=== PATIENT | male | born 1965 | race Two or more races ===

== ENCOUNTER 2023-09-02 07:50 | Inpatient (IN) | payer MEDICAID, OTHER ==
[2023-09-02] VITALS (7 sets, daily range): BP systolic 105–116; BP diastolic 60–65; PULSE 54–64; RESP 16–20; TEMP 97.3–97.9; O2SAT 93–99
[~2023-09-02] VITALS: Ht 172.7 cm; Wt 123.0 kg
[2023-09-02 08:29] LABS: Basophils # (auto) 0.1 10 ^3/uL (0-0.2); Basophils % (auto) 1.2 % (0.0-2.0); Eosinophils # (auto) 0.2 10 ^3/uL (0-0.8); Eosinophils % (auto) 2.6 % (0.0-7.0); Hematocrit 43.1 % (41.0-53.0); Hemoglobin 14.5 g/dL (13.5-17.5); Lymphocytes # (auto) 2.4 10 ^3/uL (0.4-5.4); Mean Corpuscular Hemoglobin 31.3 pg (28.0-32.0); Mean Corpuscular Hgb Conc. 33.7 g/dL (32.0-36.0); Monocytes # (auto) 0.5 10 ^3/uL (0-1.3); Monocytes % (auto) 7.6 % (0.0-12.0); Neutrophils # (auto) 2.9 10 ^3/uL (1.6-8.6); Neutrophils % (auto) 48.6 % (37.0-80.0); Red Blood Cells 4.64 10^6/uL (4.5-5.90); Red Cell Distribution Width 13.9 % (11.8-14.3)
[2023-09-02] MEDS: ONDANSETRON HCL 4 MG/2 ML VIAL IV ONE (08:31)
[2023-09-02] MEDS: ASPirin 81 mg TAB PO ONE (08:31)
[2023-09-02] MEDS: MORPHINE SULFATE 4 MG/ML SYR/VIAL IV ONE (08:32)
[2023-09-02 08:37] LABS: Chloride 110 mmol/L (98-107); Potassium 3.1 mmol/L (3.5-5.1); Sodium 139 mmol/L (136-145)
[2023-09-02 08:38] LABS: Anion Gap 6 (5-15); Calcium 7.8 mg/dL (8.5-10.1); Carbon Dioxide 23 mmol/L (20-30)
[2023-09-02 08:43] LABS: BUN/Creatinine Ratio 13.3 (10.0-20.0); Blood Urea Nitrogen 8 mg/dL (9-23); Glucose 143 mg/dL (74-106)
[2023-09-02] MEDS: cloNIDine HCL 0.1 MG TAB PO ONE (08:54)
[2023-09-02] MEDS ORDERED: POTASSIUM EFFERVESENT TAB 25 MEQ PO ONE (10:00)
[2023-09-02] MEDS ORDERED: MORPHINE SULFATE 4 MG/ML SYR/VIAL IV PRN (10:00)
[2023-09-02] MEDS ORDERED: NITROGLYCERIN 0.4 MG SL TAB SL PRN ×2 (10:00→11:00)
[2023-09-02] MEDS: ASPirin 81 mg TAB PO SCH (10:00)
[2023-09-02] MEDS ORDERED: ONDANSETRON HCL 4 MG/2 ML VIAL IV PRN (10:00)
[2023-09-02 10:35] LABS: INR 1.05 (0.9-1.15); Prothrombin Time 11.1 sec (9.3-11.8)
[2023-09-02] MEDS ORDERED: MORPHINE SULFATE INJ 2 MG/ml SYRG IV PRN (11:00)
[2023-09-02] MEDS: DOCUSATE SOD 100 MG CAP PO SCH (11:23)
[2023-09-02] MEDS: METOPROLOL TARTRATE 25 MG TAB PO SCH (11:24)
[2023-09-02] MEDS: POTASSIUM CHL 20 Meq TABLET PO ONE (12:54)
[2023-09-02] MEDS: POTASSIUM CHL 20MEQ/100ML 100 ML IV ONE (12:55)
[2023-09-02 12:58] LABS: Triglycerides 207 mg/dL (< 150)
[2023-09-02 12:59] LABS: LDL Cholesterol 64 mg/dL (< 100)
[2023-09-02 13:00] LABS: Cholesterol 115 mg/dL (< 200); HDL Cholesterol 25 mg/dL (40-59)
[2023-09-02] MEDS ORDERED: hydrALAZINE HCL 20 MG/ML VL IV PRN (14:00)
[2023-09-02] MEDS ORDERED: AMLO1TAB23 PO (15:38)
[2023-09-02 16:16] LABS: Urine Bacteria None Seen /hpf (None Seen)
[2023-09-02] MEDS: ACETAMINOPHEN 325 MG TAB PO PRN (16:25)
[2023-09-02 16:50] LABS: Urine Blood Negative /uL (Negative); Urine Clarity Clear (Clear); Urine Color Light-Yellow (Yellow); Urine Protein, UAD Negative (Negative); Urine Specific Gravity 1.015 (1.001-1.035); Urine Urobilinogen Normal (Negative); Urine WBC 1 /hpf (0 - 3)
[2023-09-02 17:04] LABS: Amphetamine Screen, Urine Neg (NEGATIVE)
[2023-09-02 17:05] LABS: Barbiturate Scree,Urine Neg (NEGATIVE); Benzodiazephine Screen, Urine Neg (NEGATIVE); Cannabinoid Screen, Urine Neg (NEGATIVE); Cocaine Screen, Urine Neg (NEGATIVE); Opiate Scree,Urine Neg (NEGATIVE); Phencyclidine Screen, Urine Neg (NEGATIVE)
[2023-09-02] MEDS ORDERED: LORazepam 2MG/ML-1ML VIAL IV PRN (20:30)
[2023-09-02] MEDS: ATORVASTATIN 20 MG TAB PO SCH (21:38)
[2023-09-03] VITALS (8 sets, daily range): BP systolic 114–150; BP diastolic 77–91; PULSE 49–80; RESP 17–20; TEMP 97.5–98.1; O2SAT 92–100
[2023-09-03 06:03] LABS: Basophils # (auto) 0.1 10 ^3/uL (0-0.2); Basophils % (auto) 0.8 % (0.0-2.0); Eosinophils # (auto) 0.1 10 ^3/uL (0-0.8); Eosinophils % (auto) 2.2 % (0.0-7.0); Hematocrit 45.9 % (41.0-53.0); Hemoglobin 15.3 g/dL (13.5-17.5); Lymphocytes # (auto) 2.6 10 ^3/uL (0.4-5.4); Lymphocytes % (auto) 39.9 % (10.0-50.0); Mean Corpuscular Hemoglobin 31.2 pg (28.0-32.0); Mean Corpuscular Hgb Conc. 33.3 g/dL (32.0-36.0); Mean Corpuscular Volume 93.6 fL (80.0-100.0); Monocytes # (auto) 0.5 10 ^3/uL (0-1.3); Monocytes % (auto) 7.8 % (0.0-12.0); Neutrophils # (auto) 3.3 10 ^3/uL (1.6-8.6); Neutrophils % (auto) 49.3 % (37.0-80.0); Nucleated Red Blood Cells % 0.1 %; Red Blood Cells 4.91 10^6/uL (4.5-5.90); Red Cell Distribution Width 14.1 % (11.8-14.3); White Blood Cell 6.6 10^3/uL (4.4-10.8)
[2023-09-03 06:17] LABS: Alanine Aminotransferase 31 U/L (7-40); Albumin 4.2 g/dL (3.2-4.8); Alkaline Phosphatase 61 U/L (46-116); Anion Gap 4 (5-15); Aspartate Aminotransferase 19 U/L (13-40); BUN/Creatinine Ratio 9.1 (10.0-20.0); Blood Urea Nitrogen 8 mg/dL (9-23); Calcium 9.4 mg/dL (8.5-10.1); Carbon Dioxide 29 mmol/L (20-30); Chloride 105 mmol/L (98-107); Cholesterol 142 mg/dL (< 200); Glucose 134 mg/dL (74-106); HDL Cholesterol 29 mg/dL (40-59); LDL Cholesterol 82 mg/dL (< 100); Potassium 4.1 mmol/L (3.5-5.1); Sodium 138 mmol/L (136-145); Triglycerides 237 mg/dL (< 150)
[2023-09-03 06:18] LABS: Bilirubin, Total 0.6 mg/dL (0.2-1.0); Total Protein 6.9 g/dL (5.7-8.2)
[2023-09-03] MEDS: NIFEdipine ER 30 MG TAB PO SCH (09:36)
[2023-09-03] MEDS: VALSARTAN 80 MG TAB PO SCH (09:36)
[2023-09-03] MEDS: ENOXAPARIN SOD 40 MG/0.4 ML SYRINGE SC SCH (09:37)
[2023-09-03] MEDS: cefTRIAXone 1GM/50ML D5W 50 ML IV ONE (14:33)
[2023-09-03] MEDS ORDERED: ERGO1CAP12 PO (16:40)
[2023-09-03] MEDS ORDERED: EMPA1TAB PO (16:40)
[2023-09-03] MEDS ORDERED: LISI40TA16 PO (16:40)
[2023-09-03] MEDS ORDERED: SEMA2INJ3 SC (16:40)
[2023-09-03] MEDS ORDERED: ATOR10TA PO (16:40)
[2023-09-04 01:48] VITALS: BP 142/77; PULSE 63; RESP 18; TEMP 97.6; O2SAT 95
[2023-09-04 05:00] VITALS: BP 131/80; PULSE 61; RESP 18; TEMP 97.6; O2SAT 93
[2023-09-04] MEDS ORDERED: ASPI-325 PO (06:15)
[2023-09-04] MEDS ORDERED: NIFE1TAB31 PO (06:15)
[2023-09-04] MEDS ORDERED: ATOR20TA50 PO (06:15)
[2023-09-04] MEDS ORDERED: VALS1TAB57 PO (06:15)
[2023-09-04] MEDS ORDERED: ACET-1882 PO (06:15)
[2023-09-04] MEDS ORDERED: CEPH250C PO (06:15)
[2023-09-04] MEDS ORDERED: AUG875T PO (06:31)
[2023-09-04 07:23] LABS: Chloride 105 mmol/L (98-107); Potassium 3.8 mmol/L (3.5-5.1); Sodium 138 mmol/L (136-145)
[2023-09-04 07:24] LABS: Anion Gap 6 (5-15); Calcium 9.5 mg/dL (8.5-10.1); Carbon Dioxide 27 mmol/L (20-30)
[2023-09-04 07:29] LABS: BUN/Creatinine Ratio 11.4 (10.0-20.0); Blood Urea Nitrogen 9 mg/dL (9-23); Glucose 117 mg/dL (74-106)
[2023-09-04] MEDS: cefTRIAXone 1GM/50ML D5W 50 ML IV SCH (08:50)
[2023-09-04] MEDS: VALSARTAN 80 MG TAB PO SCH (08:54)
[2023-09-04 09:27] VITALS: BP 152/99; PULSE 63; RESP 21; TEMP 97.7; O2SAT 97
== END 2023-09-04 12:20 | disposition home or self-care (01) | DRG 199 ==
LOC: EDBD 07:50 → ER 07:50 → TELE 11:00 → TELE-CENTR 15:35 → CENTRAL 09-03 18:45
PROVIDERS: ADMIT Internal Medicine; ATTEND Internal Medicine
DX: I16.1 Hypertensive emergency (principal); S09.8XXA Other specified injuries of head, initial encounter; E11.65 Type 2 diabetes mellitus with hyperglycemia; E78.5 Hyperlipidemia, unspecified; E87.6 Hypokalemia; E66.01 Morbid (severe) obesity due to excess calories; I25.10 Atherosclerotic heart disease of native coronary artery without angina pectoris; J98.11 Atelectasis; I10 Essential (primary) hypertension; H53.8 Other visual disturbances; Z68.41 Body mass index [BMI] 40.0-44.9, adult; Z83.3 Family history of diabetes mellitus; Z91.199 Patient's noncompliance with other medical treatment and regimen due to unspecified reason; Z79.84 Long term (current) use of oral hypoglycemic drugs; W18.39XA Other fall on same level, initial encounter; Y93.89 Activity, other specified; Y92.89 Other specified places as the place of occurrence of the external cause; Y99.8 Other external cause status
CPT/HCPCS: 36415; 70450; 70551; 71045; 80048; 80053; 80061; 80307; 81001; 82306; 82607; 83036; 83735; 83880; 84443; 84484; 85025; 85379; 85610; 93005; 93306; 93886; 99291; G0378; J2405; J3480